=== PATIENT | female | born 1995 | race Caucasian/White ===

== ENCOUNTER → 2019-12-27 14:31 | Outpatient (CLI) | payer OTHER, SELFPAY ==
[2019-12-27 14:12] VITALS: BMI 38.1
[2019-12-27 15:25] LABS: Thyroid Stim Hormone (TSH) 1.29 uIU/mL (0.358-3.74)
[2020-01-01 17:34] LABS: Vitamin D 1,25-Dihydroxy 60.9 pg/mL (19.9-79.3)
== END ==
PROVIDERS: Referring Provider Nurse Practitioner Women's Health; Visit Provider Nurse Practitioner Women's Health
DX: R53.83 Other fatigue (principal)
CPT/HCPCS: 36415; 82652; 84443

== ENCOUNTER → 2020-05-01 15:32 | Outpatient (REF) | payer OTHER, SELFPAY ==
[2020-01-22 13:05] VITALS: BMI 37.7
== END ==
LOC: LABSPEC 15:32
PROVIDERS: PCP Family Medicine; Visit Provider Family Medicine
DX: Z03.818 Encounter for observation for suspected exposure to other biological agents ruled out (principal)
CPT/HCPCS: 87635; U0003

== ENCOUNTER → 2020-06-26 10:24 | Outpatient (CLI) | payer BC, SELFPAY ==
[2020-06-26 08:59] VITALS: BMI 33.6
[2020-06-26 12:27] LABS: Absolute Lymphocyte Count 1.98 X10^3/uL (0.83-4.51); Absolute Neutrophil Count 5.8 X10^3/uL (2.0-7.7); Basophil# 0.05 X10^3/uL; Basophil% 0.6 % (0-1); Eosinophil# 0.16 X10^3/uL; Eosinophils% 1.9 % (0-5); Hematocrit 42.7 % (37-47); Hemoglobin 13.1 g/dL (12.0-15.0); Lymphocyte # 1.98 X10^3/ul (4.0); Lymphocyte % 23.2 % (19-41); Mean Corp Hgb Conc 30.7 g/dL (32-36); Mean Corpuscular Hgb 29.4 pg (27.0-32.0); Mean Platelet Vol. 9.6 fl (6.2-12.0); Monocyte# 0.58 X10^3/uL; Monocyte% 6.8 % (0-10); NRBC Flagged by Analyzer 0 % (0-5); Neutrophil # 5.76 X10^3/uL (2.7-7.7); Neutrophil % 67.3 % (47-70); Platelet Count 365 K/mm3 (150-450); RBC Distribution Width CV 12.6 % (11.6-14.6); Red Blood Count 4.45 M/mm3 (4.2-5.4); White Blood Count 8.6 K/mm3 (4.4-11.0)
[2020-06-26 12:39] LABS: D-Dimer Quantitative (DVT/PE) 0.31 FEU/ug/m (0.27-0.49)
[2020-06-26 12:43] LABS: Vitamin D,25 Hydroxy 24.9 ng/mL
[2020-06-26 13:47] LABS: ALB/GLOB Ratio 0.9 RATIO (0.9-2.4); AST(SGOT) 11 U/L (15-37); Alanine Aminotransfer ALT/SGPT 20 U/L (13-56); Albumin, Serum 3.3 g/dL (3.2-5.0); Alkaline Phosphatase 96 U/L (45-117); Anion Gap 5 (5-15); BUN 10 mg/dL (7-18); BUN/Creat Ratio 10.1 RATIO (10-20); Calcium,Total 8.2 mg/dL (8.5-10.1); Chloride 106 mmol/L (98-107); Cholesterol 164 mg/dL (200); Creatinine, Serum 0.99 mg/dL (0.55-1.02); EST Glomerular Filtration Rate 71 mL/min (>60); Est Glom Filt Rate - Afr Amer 86 mL/min (>60); Free T3 2.7 pg/mL (2.18-3.98); Globulin 3.7 g/dL (2.2-4.2); Glucose 87 mg/dL (74-106); High Density Lipoprotein 46 mg/dL; Potassium 3.9 mmol/L (3.5-5.1); Sodium Level 139 mmol/L (136-145); T4 Free Direct 1.14 ng/dL (0.76-1.46); Thyroid Stim Hormone (TSH) 1.52 uIU/mL (0.358-3.74); Triglycerides 68 mg/dL; Very Low Density Lipoprotein 14 mg/dL (5-40)
[2020-06-27 14:25] LABS: Hemoglobin A1c 4.9 % (3.8-5.6)
== END ==
PROVIDERS: PCP Internal Medicine; Referring Provider Internal Medicine; Visit Provider Internal Medicine
DX: F32.9 Major depressive disorder, single episode, unspecified (principal); F41.9 Anxiety disorder, unspecified; R53.83 Other fatigue; I95.1 Orthostatic hypotension; R42 Dizziness and giddiness; T50.B95A Adverse effect of other viral vaccines, initial encounter; R06.00 Dyspnea, unspecified; Z13.220 Encounter for screening for lipoid disorders
CPT/HCPCS: 36415; 80053; 80061; 82306; 83036; 84439; 84443; 84481; 85025; 85379

== ENCOUNTER 2020-10-24 15:30 | Emergency (ER) | payer OTHER, BC, SELFPAY ==
[2020-10-22 07:11] VITALS: BMI 33.6
[2020-10-24 15:31] VITALS: BP 124/74; PULSE 68; RESP 18; TEMP 36.7; O2SAT 100; BMI 34.3
--- NOTE | 2020-10-24 16:22 | CT_ITS ---
STUDY: CT BRAIN WITHOUT CONTRAST REASON FOR EXAM: Female, 25 years old. Fall RADIATION DOSAGE (If Supplied By Facility): CTDIvol = ( 44.99 ) mGy, DLP = ( 745.49 ) mGycm TECHNIQUE: Transaxial CT imaging of the brain was performed without administration of intravenous contrast material. Individualized dose optimization techniques were used for this CT. COMPARISON: No relevant priors. FINDINGS: Normal soft tissue structures. Normal calvarium. Normal size ventricles and extra-axial spaces for the patient''s age. Normal white matter tracts of the cerebral hemispheres. Normal basal ganglia and thalami. Normal brainstem. Normal cerebellum. There is no intracranial hemorrhage. There are no findings of an acute ischemic infarction. Normal visualized paranasal sinuses. CT/Brain/Head without Contrast IMPRESSION: No acute intracranial process. Electronically Signed: Cori Chris MD at 16:54 EDT Tel , Service support ,
--- NOTE | 2020-10-24 16:25 | EX.ED.GENINJ ---
HPI History of Present Illness Chief Complaint: Fall Informant: patient Onset/Context/Timing Onset: Today Mechanism/Context: Fall Current Severity: Mild Maximum Severity: Moderate Narrative Narrative: Patient presents after a fall. She was at work and went to sit on a rolling stool when it slid out from underneath her. She fell onto her buttocks and fell backwards striking her head against a rolling nurses cart. She did not lose consciousness. She has been nauseated and tired with an unsteady gait since her fall and was sent to the ER for evaluation. [facility] Medical History Anxiety Depression Home Medications bupropion HCl 150 mg 24 hr tablet, extended release 150 mg PO QAM 12/27/19 [History Last Taken Unknown] escitalopram oxalate 20 mg tablet 20 mg PO DAILY 12/27/19 [History Last Taken Unknown] trazodone 50 mg tablet 50 mg PO QHS 12/27/19 [History Last Taken Unknown] etonogestrel 68 mg subdermal implant 1 implant SUBDERMAL ONCE 06/26/20 [History Last Taken Unknown] Allergy/AdvReac Type Severity Reaction Status Date / Time erythromycin base Allergy Unknown Unknown Verified 10/24/20 15:35 Sulfa (Sulfonamide Allergy Unknown Unknown Verified 10/24/20 15:35 Antibiotics) Family History Grandmother Ovarian cancer Mother Thyroid disorder Surgical History H/O adenoidectomy History of tonsillectomy Social History household members: friend(s) housing: apartment number of children: 0 current occupational status: employed current occupation: [employer] history of recent travel: No sexually active: Yes Smoking Status: Never smoker alcohol intake: current alcohol intake frequency: a few times a month substance use type: does not use what type of physical activity do you participate in: none seatbelt use: always do you feel safe at home: Yes additional social history: single ROS ROS ED Constitutional Constitutional ED: Denies chills or fever(s) Eyes Eyes: Denies change in vision ENT ENT ED: Denies sore throat Cardiovascular Cardiovascular: Denies chest pain Respiratory/Chest Respiratory/Chest: Denies cough or dyspnea Gastrointestinal Gastrointestinal: Reports nausea; Denies abdominal pain, diarrhea or vomiting Genitourinary Genitourinary ED: Denies dysuria Musculoskeletal Musculoskeletal: Reports back pain Integumentary Denies rash Neurologic Neurologic: Reports headache(s); Denies weakness Psychiatric Psychiatric: Denies anxiety or depression Endocrine Endocrinology: Denies polydipsia or polyuria Allergic/Immunologic Allergic/Immunologic ED: Denies urticaria EXAM Physical Exam Const Vital Signs: 10/24/20 15:31 10/24/20 16:14 Temperature 98.1 F Temperature Source Oral Pulse Rate 68 Respiratory Rate 18 Respiratory Effort Normal Respiratory Depth Normal Respiratory Pattern Normal Blood Pressure 124/74 H Blood Pressure Mean 90 Pulse Ox 100 Oxygen Delivery Method Room Air Room Air Positive well nourished and well developed General Appearance ED: well developed HEENT Reports normocephalic and head/scalp atraumatic Eyes PERRL and EOMs intact bilaterally Neck supple Neck Narrative: No C-spine tenderness. Chest Wall inspection of chest normal and palpation of chest normal Resp normal respiratory effort and clear to auscultation bilaterally Cardio regular rate and regular rhythm GI normal to inspection, nondistended, normoactive bowel sounds Palpation: soft Back/Spine no CVA tenderness Back/Spine Narrative: Tenderness in the lumbar paraspinal region. No abrasions or ecchymosis. Extremity normal to inspection Neuro oriented x3 and no sensory deficits noted Sensorium / Orientation: alert Motor Exam: strength 5/5 throughout Psych mental status grossly normal Skin no rashes or lesions noted MDM MDM MDM Narrative Medical decision making narrative: Patient was sent for head CT along with lumbar and pelvis x-rays. Per my review of the lumbar spine and pelvis x-rays no acute fracture noted. Good alignment. Radiography Diagnostic Testing: Radiology Impression Brain CT 10/24/20 16:22 IMPRESSION: No acute intracranial process. Electronically Signed: Cori Chris MD at 16:54 EDT Tel , Service support , Lumbar Spine X-Ray 10/24/20 16:51 IMPRESSION: Within normal limits x-ray examination of the lumbar spine. Electronically Signed: Cori Chris MD at 17:04 EDT Tel , Service support , Pelvis X-Ray 10/24/20 16:51 IMPRESSION: Normal x-ray examination of the pelvis. Electronically Signed: Cori Chris MD at 17:06 EDT Tel , Service support , Treatment and Re-Evaluation Comments:: Radiologist interpretation of the studies are reviewed. Test results discussed with patient and family at bedside. She is written work restrictions and will follow up with [facility]. Discharge Plan Triage Chief Complaint: Fall ED Provider: Betsy Morton Dx/Rx/DC Orders Clinical Impression: Closed head injury, Strain of lumbar paraspinal muscle, Coccyx contusion Prescriptions: No Action escitalopram oxalate [Lexapro] 20 mg tablet 20 mg PO DAILY RF: 0 bupropion HCl [Wellbutrin XL] 150 mg tablet extended release 24 hr 150 mg PO QAM RF: 0 trazodone 50 mg tablet 50 mg PO QHS RF: 0 Nexplanon 68 mg implant 1 implant subdermal ONCE RF: 0 Primary Care Provider: Love Sanchez [facility] [GROUP OF PHYSICIANS] - 2 Days Love Sanchez MD [Primary Care Provider] - Disposition Disposition: Home, self care
--- NOTE | 2020-10-24 16:51 | RAD_ITS ---
STUDY: X-RAY - PELVIS REASON FOR EXAM: Female, 25 years old. fall TECHNIQUE: One view of the pelvis was obtained. COMPARISON: None. FINDINGS: There is a non-specific bowel gas pattern. Normal visualized soft tissue structures. Normal bilateral iliac wings, sacroiliac joints and visualized sacrum. Normal visualized bilateral superior and inferior pubic rami. Normal pubic symphysis. Normal ischial tuberosities. Normal visualized right femoral head. Normal right acetabulum. Normal right hip joint. Normal visualized left femoral head. Normal left acetabulum. Normal left hip joint. RAD/Pelvis 1 or 2 Views IMPRESSION: Normal x-ray examination of the pelvis. Electronically Signed: Cori Chris MD at 17:06 EDT Tel , Service support ,
--- NOTE | 2020-10-24 16:51 | RAD_ITS ---
STUDY: X-RAY - LUMBAR SPINE REASON FOR EXAM: Female, 25 years old. Fall TECHNIQUE: 3 view(s) of the lumbar spine were obtained. COMPARISON: None FINDINGS: Normal lumbar lordosis. There is no substantial scoliosis. There is a normal alignment of the vertebrae. Normal vertebral bodies and endplates. Normal disc space heights. The soft tissue structures are unremarkable. RAD/Lumbar Spine 2 or 3 Views IMPRESSION: Within normal limits x-ray examination of the lumbar spine. Electronically Signed: Cori Chris MD at 17:04 EDT Tel , Service support ,
[2020-10-24 17:29] VITALS: BP 108/69; PULSE 63; RESP 16; O2SAT 98
== END 2020-10-24 17:29 | disposition home or self-care (01) ==
PROVIDERS: Emergency Provider Emergency Medicine; PCP Internal Medicine
DX: S09.90XA Unspecified injury of head, initial encounter (principal); S39.012A Strain of muscle, fascia and tendon of lower back, initial encounter; S30.0XXA Contusion of lower back and pelvis, initial encounter; F32.9 Major depressive disorder, single episode, unspecified; Z79.899 Other long term (current) drug therapy; W19.XXXA Unspecified fall, initial encounter
CPT/HCPCS: 70450; 72100; 72170; 99282

== ENCOUNTER 2020-11-26 10:43 | Emergency (ER) | payer OTHER, BC, SELFPAY ==
[2020-11-22 10:08] VITALS: BMI 34.3
[2020-11-26 10:45] VITALS: BP 140/89; PULSE 116; RESP 18; TEMP 36.4; O2SAT 97; BMI 34.3
--- NOTE | 2020-11-26 11:03 | CT_ITS ---
STUDY: CT BRAIN WITHOUT CONTRAST REASON FOR EXAM: Female, 25 years old. Ataxia RADIATION DOSAGE (If Supplied By Facility): CTDIvol = ( 44.99 ) mGy, DLP = ( 745.49 ) mGycm TECHNIQUE: Transaxial CT imaging of the brain was performed without administration of intravenous contrast material. Individualized dose optimization techniques were used for this CT. COMPARISON: Comparison is made with prior study dated 10/24/2020. FINDINGS: Normal soft tissue structures. Normal calvarium. Normal size ventricles and extra-axial spaces for the patient''s age. Normal white matter tracts of the cerebral hemispheres. Normal basal ganglia and thalami. Normal brainstem. Normal cerebellum. There is no intracranial hemorrhage. There are no findings of an acute ischemic infarction. Normal visualized paranasal sinuses. CT/Brain/Head without Contrast IMPRESSION: Normal unenhanced CT scan of the brain. Electronically Signed: Jeremy Witt MD at 11:53 EDT , Service support ,
[2020-11-26] MEDS: Ondansetron ODT 4 MG Tablet PO (11:39)
--- NOTE | 2020-11-26 12:10 | EX.ED.DYSGE1 ---
HPI History of Present Illness Chief Complaint: Dizziness Informant: patient Narrative Narrative: 25-year-old female presents the emergency department with dizziness headache nausea and continued back pain. She states that she is feeling very off balance and has to hold onto the ramirez that she walks. She states that she fell at work a month ago was seen in the emergency department had x-rays and a head CT that were negative. She followed up with [employer]. and is currently doing physical therapy. She states the above symptoms are continuing. She was at work today did not feel that she was able to do her job and they told her to come to emergency. [facility] Medical History Anxiety Depression Depression Home Medications bupropion HCl 150 mg 24 hr tablet, extended release 150 mg PO QAM 12/27/19 [History Last Taken Unknown] escitalopram oxalate 20 mg tablet 20 mg PO DAILY 12/27/19 [History Last Taken Unknown] trazodone 50 mg tablet 50 mg PO QHS 12/27/19 [History Last Taken Unknown] etonogestrel 68 mg subdermal implant 1 implant SUBDERMAL ONCE 06/26/20 [History Last Taken Unknown] lidocaine 5 % topical patch 1 patch TOPICAL DAILY #15 ea 11/09/20 [Rx Last Taken Unknown] cyclobenzaprine 10 mg tablet 10 mg PO TID PRN 5 Days #20 tab 11/22/20 [Rx Last Taken Unknown] ondansetron 4 mg PO Q8H PRN PRN #15 tab 11/26/20 [Rx Last Taken Unknown] Allergy/AdvReac Type Severity Reaction Status Date / Time erythromycin base Allergy Unknown Unknown Verified 11/26/20 10:45 Sulfa (Sulfonamide Allergy Unknown Unknown Verified 11/26/20 10:45 Antibiotics) adhesive tape AdvReac Rash Verified 11/26/20 10:45 Family History Grandmother Ovarian cancer Mother Thyroid disorder Surgical History H/O adenoidectomy History of tonsillectomy Social History household members: friend(s) housing: apartment number of children: 0 current occupational status: employed current occupation: [employer] history of recent travel: No sexually active: Yes Smoking Status: Never smoker alcohol intake: current alcohol intake frequency: a few times a month substance use type: does not use what type of physical activity do you participate in: none seatbelt use: always do you feel safe at home: Yes additional social history: single ROS ROS ED Constitutional Constitutional ED: Denies chills or weight loss Eyes Eyes: Reports blurry vision; Denies change in vision or diplopia ENT ENT ED: Denies ear pain, rhinorrhea or sore throat Cardiovascular Cardiovascular: Denies chest pain, orthopnea, palpitations or racing heartbeat Respiratory/Chest Respiratory/Chest: Denies cough, dyspnea or orthopnea Gastrointestinal Gastrointestinal: Reports nausea; Denies abdominal pain, diarrhea or vomiting Genitourinary Genitourinary ED: Denies dysuria, hematuria or urinary frequency Musculoskeletal Musculoskeletal: Denies arthralgias or myalgias Integumentary Denies abscess or rash Neurologic Neurologic: Reports headache(s) and other Details: Reports feeling off balance ; Denies weakness Psychiatric Psychiatric: Reports other; Denies anxiety, depression, suicidal ideation or suicidal thoughts Endocrine Endocrinology: Denies polydipsia, polyphagia or polyuria Allergic/Immunologic Allergic/Immunologic ED: Denies mouth swelling, tongue swelling or urticaria EXAM Physical Exam Const Vital Signs: 11/26/20 10:45 11/26/20 11:37 Temperature 97.5 F L Temperature Source Temporal Pulse Rate 116 H Respiratory Rate 18 Respiratory Pattern Normal Blood Pressure 140/89 H Blood Pressure Mean 106 Pulse Ox 97 Oxygen Delivery Method Room Air Positive well nourished and well developed General Appearance ED: well developed HEENT Reports normocephalic, head/scalp atraumatic and moist mucous membranes Eyes PERRL and EOMs intact bilaterally Neck no lymphadenopathy, supple and no JVD Resp normal respiratory effort and clear to auscultation bilaterally Cardio regular rate, regular rhythm and no murmurs GI normal to inspection, nondistended, normoactive bowel sounds and non-tender Palpation: soft Back/Spine no CVA tenderness and normal ROM Extremity normal to inspection General Extremety ED: Negative for edema General Extremity: Negative for edema Neuro oriented x3 and CN's II-XII intact bilaterally Sensorium / Orientation: alert Motor Exam: strength 5/5 throughout Psych mental status grossly normal Mood & Affect: Negative for depressed or tearful Skin no rashes or lesions noted and no wounds MDM MDM MDM Narrative Medical decision making narrative: Repeat head CT does not show any new bleeding or fracture. Patient will be discharged home instructions to follow-up with [employer]. We gave her Keily here and I can give her prescription for same. Radiography Diagnostic Testing: Radiology Impression Brain CT 11/26/20 11:03 IMPRESSION: Normal unenhanced CT scan of the brain. Electronically Signed: Jeremy Witt MD at 11:53 EDT , Service support , Discharge Plan Triage Chief Complaint: Dizziness ED Provider: Terry Melchor Dx/Rx/DC Orders Clinical Impression: Concussion Instructions: ED Concussion Prescriptions: New ondansetron [ondansetron] 4 MG tablet 4 mg PO Q8H PRN PRN (Reason: Nausea) Qty: 15 RF: 0 No Action escitalopram oxalate [Lexapro] 20 mg tablet 20 mg PO DAILY RF: 0 bupropion HCl [Wellbutrin XL] 150 mg tablet extended release 24 hr 150 mg PO QAM RF: 0 trazodone 50 mg tablet 50 mg PO QHS RF: 0 Nexplanon 68 mg implant 1 implant subdermal ONCE RF: 0 cyclobenzaprine 10 mg tablet 10 mg PO TID PRN (Reason: muscle spasm) 5 Days Qty: 20 RF: 0 lidocaine [Lidoderm] 5 % adhesive patch,medicated 1 patch topical DAILY Qty: 15 RF: 0 Primary Care Provider: Love Sanchez Referrals: Love Sanchez MD [Primary Care Provider] - As Needed Clinic,NOW [NON-STAFF] - As soon as possible (Please discuss your concussive symptoms) Disposition Disposition: Home, Self Care
== END 2020-11-26 12:37 | disposition home or self-care (01) ==
PROVIDERS: Emergency Provider Emergency Medicine; PCP Internal Medicine
DX: S06.0X9A Concussion with loss of consciousness of unspecified duration, initial encounter (principal); F32.9 Major depressive disorder, single episode, unspecified; W19.XXXA Unspecified fall, initial encounter; Z79.899 Other long term (current) drug therapy
CPT/HCPCS: 70450; 99283

== ENCOUNTER 2020-12-10 08:30 | Outpatient (RCR) | payer OTHER, BC, SELFPAY ==
--- NOTE | 2020-11-05 10:26 | HP.PTEVAL ---
Patient's Visit Information DAISHA COREY is a 25 year old F referred to Physical Therapy by BRIJESH Sanchez with a diagnosis of Head injury, and strain of muscle, fascia and tend of LB. Date of Evaluation: 11/05/20 Physical Therapist: DIAMOND [place] - Visit Plan Frequency: 3x /Week Duration: 4 Weeks Plan: Check FGA next visit. 3X/ week for 12 visits for Core stability, postural exercises, c-spine AROM and c-spine distraction/sub occip release, balance, vestibular inputs with HEP. HEP: PT, Chin tucks, mid rows - Subjective October 24, 2020 while Pt was at work and went to sit on a rolling stool and she fell off and hit the back of her head on a nurses cart. Two days before that she had hurt her shoulder. She went to Urgent Care and they sent her to the hospital cause she hit her head. The hospital did a CT scan and they said she was fine. She went back to [facility] and he said she had a concussion. Her current symptoms: She has a lot of pain in her LB to her shoulder blades and pain in her neck from hitting the nurses cart. She has GOVEA everyday and has to take IBprof every 6 hours. She is super tired all the time. She feels slower especially at work. She has some balance issues.. almost fell over making her bed several times bending over to make her bed. The room spins sometimes when she stands up too fast. If she is on the screen for long periods of time she will start to get a GOVEA. She is back at work and she is on light duty. She reports no N&t or weakness in her arms or legs. Sitting in chair straight make her worse. Pt feels that her symptoms are getting a little bit better. She still can not lift heavy things. Walking around a lot at work she can tell that her back really hurts. She sleeps ok but takes trazadone to sleep for over 2 years. Pt had COVID in Apr and she was having fainting spells when stood up... last spell was 3 months ago. - Pain GOVEA Pain Intensity (Out of 10): 5 back pain Pain Intensity (Out of 10): 6 - Objective Gait: walks with valgus B knees and wider CARLA. Able to walk on heels and toes with no sign of weakness. Trunk AROM: flexion 50%, ext 25%, SB B 75%, Rot B 75%. Prone press ups X 10 (pain to start across the LB and after 10....pt felt a little looser in her LB but increase tightness in her mid thoracic). Pt tolerated thoracic ext mobs and was tight around T8-T12 but not a ton of relief afterwards. Posture: sits with rounded shoulders and fw flexed trunk. LE MMT: B hip flex 4/5, B knee ext 4/5, B knee flex 4/5, B hip abd 4-/5, B hip ext 4/5. - SLR for pain B LE. C-spine AROM: flex 100%, Ext 25%, Rot B 75%, SB B 75%. Pt was very sore along the R side of her paraspinals and occiput region. Pt felt better with distraction and suboccip release. MH X 10 in supine to LB and c-spine .... no charge - Goals Goal 1:: I HEP Goal Time Frame: 4-6 Weeks Goal 2:: Decrease freq of major GOVEA to 1 X/ week Goal Time Frame: 4-6 Weeks Goal 3:: Sit with upright posture through treatment session Goal Time Frame: 4-6 Weeks Goal 4:: Test FGA Goal Time Frame: 2 Weeks Goal 5:: Be able to resume full duty at work with no LBP pain or increase in GOVEA Goal Time Frame: 4-6 Weeks Goal 6:: Increase LE strength by 1/2 muscle grade (at time of the eval: B hip flex 4/5, B knee ext 4/5, B knee flex 4/5, B hip abd 4-/5, B hip ext 4/5). - Rehabilitation Potential Rehabilitation Potential: Good - Anticipated Interventions Patient/Client Instruction: Educate patient on: Condition, Plan of Care For the Purpose of:: To decrease pain, To increase ROM, To improve nutrient delivery to tissue, To improve muscle performance and motor function, To improve ability to perform ADL's, To increase tolerance to activity/condition/position, To improve performance and independence with ADL's, To decrease level of supervision to perform tasks, To improve ability of physical actions for home/community/work/leisure, To improve health of tissue, To decrease soft tissue restriction, To increase flexibility/ROM, To improve balance, To improve safety with gait Therapeutic Exercise to Include: Strength training, Balance training, Body mechanics, Postural training, Flexibilty training, Gait and locomotor training, Passive ROM, Active ROM, Dynamic Lumbar Stabilization, [place] Exercises, Scapular Strength/Stabilization For the Purpose of:: To decrease pain, To increase ROM, To improve nutrient delivery to tissue, To improve muscle performance and motor function, To increase tolerance to activity/condition/position, To improve performance and independence with ADL's, To decrease level of supervision to perform tasks, To improve ability of physical actions for home/community/work/leisure, To improve gait and locomotor functions, To improve health of tissue, To decrease soft tissue restriction, To increase flexibility/ROM, To improve balance, To improve safety with gait Manual Therapy Techniques to Include: Passive ROM, Soft tissue mobilization For the Purpose of:: To decrease pain, To increase ROM, To improve nutrient delivery to tissue, To improve muscle performance and motor function, To improve ability to perform ADL's, To increase tolerance to activity/condition/position, To decrease level of supervision to perform tasks, To improve health of tissue, To decrease soft tissue restriction, To increase flexibility/ROM, To improve balance IF ES: Yes Cryotherapy (ice pack, ice massage): Yes Thermo therapy (hot pack): Yes Ultrasound (thermal/non thermal): Yes For the Purpose of:: To decrease pain, To decrease swelling/inflammation, To increase ROM, To improve nutrient delivery to tissue Thank you for the opportunity to evaluate your patient. For Medicare and Medicare HMO plans, please review the plan of care and approve it. It will need to be FAXED BACK to us at [phone] for Medicare purposes. For Medicare only, by signing this I certify the plan of care. Please let me know if there are questions or concerns regarding this plan of care. Physician Signature: Date:
--- NOTE | 2020-12-10 09:08 | HP.PTDCSUM ---
It has been my pleasure to treat DAISHA COREY referred by BRIJESH Sanchez, with the diagnosis of Head injury, and strain of muscle, fascia and tend of LB for a total of 13 visit(s). Discharge Date: 12/10/20 Please see the following information for a summary of their discharge status. Subjective: Pt did her VOR X 1 5 X yesterday and did not get any faster. It did make her dizzy. Pt has a neurologist appt on the . Will hold PT until then as a new C-9 would need to be issued. Her GOVEA always starts on the L side of her head. The intensity of her GOVEA are increasing. Pt's back pain is 4/10. Pt is still doing her HEP at home. The suboccip release will take the GOVEA symptoms down for a few hours with pain meds also. GOVEA Pain Intensity (Out of 10): 5 back pain Pain Intensity (Out of 10): 4 % Improvement: 25 Objective/Function: Increase dizziness with horizontal VOR X 1. PT has not helped with GOVEA... intensifying. Dizzy that was not there before is there now. LE MMT: B hip flex 4+/5, B knee ext 4/5, B knee flex 4/5, B hip abd 4/5, B hip ext 4/5). Goal 1:: I HEP Goal Progress: Goal Met Goal 2:: Decrease freq of major GOVEA to 1 X/ week Goal Progress: Not Progressing Goal 3:: Sit with upright posture through treatment session Goal Progress: Progressing Goal 4:: Test FGA Goal Progress: Goal Met Goal 5:: Be able to resume full duty at work with no LBP pain or increase in GOVEA Goal 6:: Increase LE strength by 1/2 muscle grade (at time of the eval: B hip flex 4/5, B knee ext 4/5, B knee flex 4/5, B hip abd 4-/5, B hip ext 4/5). Goal Progress: Goal Met Plan: DC PT as pt will be doing to a neurologist. Discharge Comments: DC PT.... pt to see a neurologist If there are questions or concerns regarding this patient's physical therapy, please feel free to call me at [phone]. Thank you for the referral of this patient. Sincerely, Sandra Damon, DIAMOND
== END 2020-12-10 10:22 | disposition home or self-care (01) ==
LOC: PT 08:30
PROVIDERS: PCP Internal Medicine; Referring Provider Physician Assistant Surgical; Visit Provider Physician Assistant Surgical
DX: S09.90XD Unspecified injury of head, subsequent encounter (principal); S39.012D Strain of muscle, fascia and tendon of lower back, subsequent encounter; X58.XXXD Exposure to other specified factors, subsequent encounter
CPT/HCPCS: 97110; 97140; 97162; 97530

== ENCOUNTER 2021-05-28 11:38 | Emergency (ER) | payer BC, SELFPAY ==
[2021-05-28 11:39] VITALS: BP 135/88; PULSE 102; RESP 18; TEMP 36.1; O2SAT 98; BMI 38.0
[2021-05-28 14:07] VITALS: BP 134/76; PULSE 98; RESP 18; TEMP 36.6; O2SAT 97
--- NOTE | 2021-05-28 14:43 | EDS_ITS ---
HPI HPI - GI History of Present Illness Chief Complaint: GI Bleed Informant: patient Narrative Narrative: Patient comes in for episode of hematemesis. Patient states she has severe anxiety. It gets worse during the holidays. On she had a panic attack. Since then her anxiety has been higher. She has been more nauseated. She also has a history of bad reflux. She has been having more reflux. She did not eat much over the last couple days because of the anxiety and reflux. This morning she woke up. She felt nauseated. She vomited 2 or 3 times. She then vomited with some blood. She has vomited since without blood. She only had one episode of the hematemesis. She also states that she had some blood come from her nose but that stopped spontaneously. No other areas of bleeding or bruising. No history of platelet dysfunction or ITP. [facility] Medical History Anxiety Depression Depression Home Medications bupropion HCl 150 mg 24 hr tablet, extended release 150 mg PO QAM 12/27/19 [History Last Taken Unknown] escitalopram oxalate 20 mg tablet 20 mg PO DAILY 12/27/19 [History Last Taken Unknown] trazodone 50 mg tablet 50 mg PO QHS 12/27/19 [History Last Taken Unknown] etonogestrel 68 mg subdermal implant 1 implant SUBDERMAL ONCE 06/26/20 [History Last Taken Unknown] meclizine 25 mg tablet 25 mg PO TID PRN #90 tab 12/16/20 [Rx Last Taken Unknown] cholecalciferol (vitamin D3) 1,250 mcg (50,000 unit) capsule 1,250 mcg PO QWEEK #4 cap 01/28/21 [Rx Last Taken Unknown] famotidine 20 mg PO DAILY 05/28/21 [History Last Taken Unknown] hydroxyzine HCl 25 mg PO TID PRN #14 tab 05/28/21 [Rx Last Taken Unknown] ondansetron 4 mg PO Q8H PRN #10 tab 05/28/21 [Rx Last Taken Unknown] Allergy/AdvReac Type Severity Reaction Status Date / Time erythromycin base Allergy Unknown Unknown Verified 05/28/21 14:04 Sulfa (Sulfonamide Allergy Unknown Unknown Verified 05/28/21 14:04 Antibiotics) adhesive tape AdvReac Rash Verified 05/28/21 14:04 Family History Grandmother Ovarian cancer Mother Thyroid disorder Surgical History H/O adenoidectomy History of tonsillectomy Social History household members: friend(s) housing: apartment number of children: 0 current occupational status: employed current occupation: [employer] history of recent travel: No sexually active: Yes Smoking Status: Never smoker Electronic Cigarette Use: not used second hand exposure: Yes alcohol intake: current alcohol intake frequency: holidays/special occasions only details: Occationally substance use type: does not use what type of physical activity do you participate in: none seatbelt use: always do you feel safe at home: Yes additional social history: single ROS ROS ED Constitutional Constitutional ED: Denies chills or fever(s) ENT ENT ED: Denies rhinorrhea or sore throat Cardiovascular Cardiovascular: Denies chest pain or palpitations Respiratory/Chest Respiratory/Chest: Denies cough or dyspnea Gastrointestinal Gastrointestinal: Reports nausea and vomiting; Denies abdominal pain or diarrhea Genitourinary Genitourinary ED: Denies dysuria Musculoskeletal Musculoskeletal: Denies arthralgias or myalgias Integumentary Denies rash Neurologic Neurologic: Denies headache(s) Psychiatric Psychiatric: Reports anxiety; Denies suicidal thoughts Endocrine Endocrinology: Denies polydipsia or polyuria Hematologic/Lymphatic Hematologic/Lymphatic: Denies easy bruising Allergic/Immunologic Allergic/Immunologic ED: Denies urticaria EXAM Physical Exam Const Vital Signs: 05/28/21 11:39 05/28/21 14:07 Temperature 97 F L 97.8 F Temperature Source Temporal Temporal Pulse Rate 102 H 98 Respiratory Rate 18 18 Blood Pressure 135/88 H 134/76 H Blood Pressure Mean 103 95 Pulse Ox 98 97 Oxygen Delivery Method Room Air Room Air Positive well nourished and well developed General Appearance ED: well developed and NAD; Negative for pallor HEENT Reports moist mucous membranes HEENT Narrative: Oropharynx shows no swelling or irritation. No nasal bleeding or dried blood is noted. normocephalic and atraumatic Eyes Eyes Narrative: No petechiae. General Eye ED: Negative for pale conjunctiva or scleral icterus Neck no JVD Resp normal respiratory effort and clear to auscultation bilaterally Cardio regular rate and regular rhythm GI non-tender, non-distended and no masses Auscultation: normoactive bowel sounds Palpation: soft Back/Spine no CVA tenderness Neuro Sensorium / Orientation: alert and oriented to person Psych Psych Narrative: Patient is mildly anxious. Mood & Affect: anxious Skin Skin Narrative: Normal color of nailbeds, palms, conjunctive a. General Skin Exam: Negative for jaundice or pallor Lesions: no lesions Rashes: no rashes MDM MDM MDM Narrative Medical decision making narrative: Patient had a single episode of hematemesis after some forceful vomiting. This is consistent with Valerie-Monique syndrome. This may be contributed by significant anxiety, acid reflux and decreased diet. I encouraged her to try a PPI rather than her Prilosec for about a week. We will get her meds for nausea. I do not think she requires blood work or work- up. Her abdomen is completely benign. She has no urinary symptoms fevers or chills. Discharge Plan Triage Chief Complaint: GI Bleed ED Provider: Luis Knox Dx/Rx/DC Orders Clinical Impression: Valerie-Monique syndrome, Anxiety, Nausea & vomiting Instructions: Valerie-Monique Tear Prescriptions: New hydroxyzine HCl 25 mg tablet 25 mg PO TID PRN (Reason: anxiety) Qty: 14 RF: 0 ondansetron 4 mg tablet,disintegrating 4 mg PO Q8H PRN (Reason: nausea and vomiting) Qty: 10 RF: 0 No Action escitalopram oxalate [Lexapro] 20 mg tablet 20 mg PO DAILY RF: 0 bupropion HCl [Wellbutrin XL] 150 mg tablet extended release 24 hr 150 mg PO QAM RF: 0 trazodone 50 mg tablet 50 mg PO QHS RF: 0 Nexplanon 68 mg implant 1 implant subdermal ONCE RF: 0 meclizine 25 mg tablet 25 mg PO TID PRN (Reason: nausea or dizziness) Qty: 90 RF: 2 cholecalciferol (vitamin D3) 1,250 mcg (50,000 unit) capsule 1,250 mcg PO QWEEK Qty: 4 RF: 2 famotidine 20 mg Tablet 20 mg PO DAILY RF: 0 Primary Care Provider: Love Sanchez Referrals: Love Sanchez MD [Primary Care Provider] - 3-5 Days if not improving Disposition Disposition: Home, Self Care
[2021-05-28] MEDS: Ondansetron ODT 4 MG Tablet PO (15:25)
[2021-05-28 15:28] VITALS: RESP 14
== END 2021-05-28 15:28 | disposition home or self-care (01) ==
PROVIDERS: Emergency Provider Emergency Medicine; PCP Internal Medicine
DX: K22.6 Gastro-esophageal laceration-hemorrhage syndrome (principal); F41.9 Anxiety disorder, unspecified; R11.2 Nausea with vomiting, unspecified; K21.9 Gastro-esophageal reflux disease without esophagitis; F32.A Depression, unspecified; Z79.899 Other long term (current) drug therapy
CPT/HCPCS: 99283

== ENCOUNTER → 2022-07-23 | Outpatient (CLI) | payer OTHER, SELFPAY ==
[2022-07-23 15:44] LABS: NATERA MAILED SPECIMEN
[2022-08-01 10:59] LABS: HPV APTIMA, High Risk Negative (Negative)
[2022-08-03 21:29] LABS: HPV Reflexed? YES, CHARGE PATIENT
== END | disposition home or self-care (01) ==
PROVIDERS: PCP Internal Medicine; Referring Provider Obstetrics & Gynecology; Visit Provider Obstetrics & Gynecology
DX: Z12.4 Encounter for screening for malignant neoplasm of cervix (principal); Z80.41 Family history of malignant neoplasm of ovary
CPT/HCPCS: 36415; 87624; 88175; G0145